=== PATIENT | female | born 1990 | race African-American/Black ===

== ENCOUNTER 2016-06-25 10:04 | Emergency (ER) | payer OTHER ==
[~2016-06-25] VITALS: Ht 157.5 cm; Wt 54.0 kg
[2016-06-25] MEDS ORDERED: MACR100C3 PO (12:49)
[2016-06-25 12:57] VITALS: BP 99/59
== END 2016-06-25 13:01 | disposition home or self-care (01) ==
LOC: M ED 11:19
DX: N30.90 Cystitis, unspecified without hematuria (principal); F17.200 Nicotine dependence, unspecified, uncomplicated